=== PATIENT | male | born 2005 | race African-American/Black ===

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

== ENCOUNTER 2025-04-04 15:27 | Emergency (ER) | payer SELFPAY ==
[2025-04-04] MEDS ORDERED: Ibuprofen 800 MG TAB ONE (16:20)
== END 2025-04-04 16:22 | disposition home or self-care (01) ==
LOC: NAV ERS 15:27
DX: S29.011A Strain of muscle and tendon of front wall of thorax, initial encounter (principal); I10 Essential (primary) hypertension; Z79.899 Other long term (current) drug therapy; X58.XXXA Exposure to other specified factors, initial encounter
CPT/HCPCS: 99284